=== PATIENT | female | born 1980 | race Caucasian/White ===

== ENCOUNTER 2022-11-11 06:56 | Emergency (ER) | payer OTHER, MEDICAID, SELFPAY ==
--- NOTE | ~2022-11-11 | XR_ITS ---
EXAMINATION: XR CHEST CLINICAL INFORMATION: Shortness of breath COMPARISON: None TECHNIQUE: Frontal view of the chest was obtained. FINDINGS: No significant abnormality is noted involving the heart, lungs, mediastinum, bony thorax or soft tissues. XR/XR chest 1V IMPRESSION: Unremarkable examination.
--- NOTE | 2022-11-11 06:59 | ECG_ITS ---
Test Reason : CP Blood Pressure : / mmHG Vent. Rate : 063 BPM Atrial Rate : 063 BPM P-R Int : 142 ms QRS Dur : 078 ms QT Int : 382 ms P-R-T Axes : 063 040 027 degrees QTc Int : 390 ms Normal sinus rhythm Normal ECG No previous ECGs available Referred By: Generic ED Physician Electronically Signed By:LAKSHMI APARICIO
[2022-11-11 07:11] VITALS: BP 138/95; PULSE 68; RESP 16; TEMP 36.6; O2SAT 98; BMI 28.0
[2022-11-11 07:19] VITALS: BP 132/84; PULSE 66; RESP 14; TEMP 36.9; O2SAT 100
[2022-11-11 07:53] LABS: MANUAL DIFF FLAG NO
[2022-11-11 07:55] LABS: Basophils Percent Auto 0.6 % (0-2); Eosinophils Absolute Auto 0.2 X10*3/uL (0.0-0.4); Eosinophils Percent Auto 2.1 % (0-4); Hematocrit 38.1 % (37.0-47.0); Hemoglobin 12.8 g/dl (12.0-16.0); Imm Gran Abs Auto 0.02 X10*3/uL (0.00-0.03); Imm Gran Pct Auto 0.3 % (0.0-0.4); Lymphocytes Absolute Auto 2.6 X10*3/uL (1.2-4.9); Lymphocytes Percent Auto 36.4 % (20-40); Mean Corpuscular HGB Conc 33.6 g/dl (31.0-35.0); Mean Corpuscular Hemoglobin 29.6 pg (27.0-33.0); Monocytes Absolute Auto 0.5 X10*3/uL (0.1-1.2); Monocytes Percent Auto 6.5 % (2-11); Neutrophils Absolute Auto 3.8 x10*3/uL (2.0-8.3); Neutrophils Percent Auto 54.1 % (45-73); Platelet Count 280 X10*3/uL (160-400); Red Blood Count 4.33 X10*6/uL (4.20-5.50); Red Cell Distribution Width 14.5 % (11.0-16.0)
[2022-11-11 08:15] LABS: Alanine Aminotransferase 11 U/L (0-31); Albumin Level 3.9 g/dL (3.5-5.0); Alkaline Phosphatase 53 U/L (39-117); Anion Gap 10 (12-20); Aspartate Amino Transferase 17 U/L (5-31); Bilirubin Total 0.9 mg/dL (0.0-1.0); Blood Urea Nitrogen 8 mg/dL (9-16); Carbon Dioxide 27 mmol/L (22-29); Chloride 108 mmol/L (96-108); Creatinine Clr Calc Pharmacy 90.3; Estimated Glomerular Filt Rate > 60; Glucose Random 90 mg/dL (60-115); Potassium 4.2 mmol/L (3.3-5.1); Sodium 141 mmol/L (135-145); Total Protein 6.7 g/dL (6.5-8.0)
[2022-11-11 08:18] LABS: Troponin-I High Sensitivity < 3.5 ng/L (<3.5-17.0)
--- NOTE | 2022-11-11 08:18 | ED.CHESTPAIN ---
HPI - Chest Pain General Chief Complaint: Chest Pain Stated Complaint: Chest pain Time Seen by Provider: 11/11/22 07:13 History of Present Illness HPI narrative: Patient is a 42-year-old female presents today with having chest pain. The chest pain started on Tuesday it lasted for about 15 minutes then. On Tuesday patient had leg pain. That lasted for approximately 30 minutes. There is no leg swelling. No history of being on control. No history of long distance travel. No history of cancer. Subsequently patient on Tuesday started developing chest pain tightness that lasted since approximately 15:00 it has been fairly constant since. Patient denies any diaphoresis. Question shortness of breath. Patient from home. No history of diabetes, hypertension, DC. Positive history of smoking. No history of high cholesterol. No nausea no vomiting. Related Data Allergies Allergy/AdvReac Type Severity Reaction Status Date / Time ibuprofen [From Motrin] Allergy Swelling Verified 11/11/22 07:11 Latex, Natural Rubber Allergy Swelling Verified 11/11/22 07:10 naproxen Allergy Swelling Verified 11/11/22 07:10 [facility] Past Medical History Attestation statement: The following information was validated with the patient. Social History Social History Advance Directives: Yes Advance Directives Information Provided: Yes Advance Directives on File: No Physical Exam Vital Signs: Vital Signs: Last Vital Signs Temp 98.5 F 11/11/22 07:19 Pulse 66 11/11/22 07:19 Resp 14 11/11/22 07:19 BP 132/84 11/11/22 07:19 Pulse Ox 100 11/11/22 07:19 O2 Del Method 11/11/22 07:19 BMI result Body Mass Index 28.0 Appearance: Alert. Oriented X3. No acute distress. Eyes: Pupils equal, round and reactive to light. ENT: Pharynx normal. Neck: Normal inspection. Neck supple. No lymph nodes noted. No crepitus CVS: Normal heart rate and rhythm. Pulses normal. Normal S1 and S2 Respiratory: No respiratory distress. Breath sounds normal. No Wheezing. No rales Abdomen: Soft and nontender. No rigidity. No distention. good BS x4 Skin: Skin warm and dry. Normal skin color. Normal skin turgor. Extremities: No lower extremity edema. Neurovascular intact to all extremities. No Lacerations. No Rash. Examination of the lower extremity showed no edema noted. No calf tenderness. Negative Homans sign. Calf size were equal at 10 cm below the tibial tuberosity bilaterally. Neuro: Oriented X 3. No motor deficit. No sensory deficit. Moving all extermities. No slurred speech Medical Decision Making Medical Decision Making [facility] Narrative: Patient has nonspecific chest pain and leg pain. She is 42 years old. Her only cardiac risk factor being she smokes. Patient is chest pain has been fairly constant. Two sets of cardiac enzymes are grossly negative. Patient has an atypical history. Only 1 cardiac risk factor. She is 42 years old. Negative troponin. Her heart score is less than 3. Joint decision was made to discharge patient home. Patient's chest x-ray showed no evidence of pneumonia no evidence for pneumothorax. Patient had nonspecific leg pain without any leg swelling. Patient D-dimer was grossly negative. There is no evidence for PE in the setting of low risk. She is in stable condition. Will discharge patient home. Differential Diagnosis Pneumonia, ACS, PE, DVT, pneumothorax, Admission/Observation Consideration of admission/observation: Escalation of care including admission/observation considered Lab Data [facility] Lab Attestation statement: I reviewed the patient's lab results. 11/11/22 07:47 11/11/22 03:06 Labs: Lab Results 11/11/22 11/11/22 11/11/22 Range/Units 03:06 07:42 07:47 WBC 7.0 (4.8-10.8) X10*3/uL RBC 4.33 (4.20-5.50) X10*6/uL Hgb 12.8 (12.0-16.0) g/dl Hct 38.1 (37.0-47.0) % MCV 88.0 (80.0-98.0) fL MCH 29.6 (27.0-33.0) pg MCHC 33.6 (31.0-35.0) g/dl RDW 14.5 (11.0-16.0) % Plt Count 280 (160-400) X10*3/uL MPV 10.0 (9.4-12.3) fL Immature Gran % (Auto) 0.3 (0.0-0.4) % Neut % (Auto) 54.1 (45-73) % Lymph % (Auto) 36.4 (20-40) % [place] % (Auto) 6.5 (2-11) % Eos % (Auto) 2.1 (0-4) % Baso % (Auto) 0.6 (0-2) % Lymph # (Auto) 2.6 (1.2-4.9) X10*3/uL [place] # (Auto) 0.5 (0.1-1.2) X10*3/uL Eos # (Auto) 0.2 (0.0-0.4) X10*3/uL Baso # (Auto) 0.0 (0.0-0.2) X10*3/uL Abs Immat Gran (auto) 0.02 (0.00-0.03) X10*3/uL Absolute Neuts (auto) 3.8 (2.0-8.3) x10*3/uL Absolute Nucleated RBC 0.000 (0.0-0.012) X10*3/uL Nucleated RBC % (auto) 0.0 (0.0-0.2) /100WBC D-Dimer High Sensitivty NG/ML Sodium 141 (135-145) mmol/L Potassium 4.2 (3.3-5.1) mmol/L Chloride 108 (96-108) mmol/L Carbon Dioxide 27 (22-29) mmol/L Anion Gap 10 L (12-20) BUN 8 L (9-16) mg/dL Creatinine 0.96 (0.5-1.4) mg/dL Estim Creat Clear Calc 90.3 Estimated GFR > 60 Random Glucose 90 (60-115) mg/dL Calcium 9.0 (8.4-10.2) mg/dL Total Bilirubin 0.9 (0.0-1.0) mg/dL AST 17 (5-31) U/L ALT 11 (0-31) U/L Alkaline Phosphatase 53 (39-117) U/L Troponin I High Sens (<3.5-17.0) ng/L Total Protein 6.7 (6.5-8.0) g/dL Albumin 3.9 (3.5-5.0) g/dL Lipase 13 (8-78) U/L Beta HCG, Quant < 2 mIU/mL Influenza Type A (PCR) NEGATIVE (Negative) Influenza Type B (PCR) NEGATIVE (Negative) RSV RNA Qual (PCR) NEGATIVE (Negative) SARS-CoV-2 RNA (RT-PCR) NEGATIVE (Negative) 11/11/22 11/11/22 11/11/22 Range/Units 07:47 08:33 10:15 WBC (4.8-10.8) X10*3/uL RBC (4.20-5.50) X10*6/uL Hgb (12.0-16.0) g/dl Hct (37.0-47.0) % MCV (80.0-98.0) fL MCH (27.0-33.0) pg MCHC (31.0-35.0) g/dl RDW (11.0-16.0) % Plt Count (160-400) X10*3/uL MPV (9.4-12.3) fL Immature Gran % (Auto) (0.0-0.4) % Neut % (Auto) (45-73) % Lymph % (Auto) (20-40) % [place] % (Auto) (2-11) % Eos % (Auto) (0-4) % Baso % (Auto) (0-2) % Lymph # (Auto) (1.2-4.9) X10*3/uL [place] # (Auto) (0.1-1.2) X10*3/uL Eos # (Auto) (0.0-0.4) X10*3/uL Baso # (Auto) (0.0-0.2) X10*3/uL Abs Immat Gran (auto) (0.00-0.03) X10*3/uL Absolute Neuts (auto) (2.0-8.3) x10*3/uL Absolute Nucleated RBC (0.0-0.012) X10*3/uL Nucleated RBC % (auto) (0.0-0.2) /100WBC D-Dimer High Sensitivty 157 NG/ML Sodium (135-145) mmol/L Potassium (3.3-5.1) mmol/L Chloride (96-108) mmol/L Carbon Dioxide (22-29) mmol/L Anion Gap (12-20) BUN (9-16) mg/dL Creatinine (0.5-1.4) mg/dL Estim Creat Clear Calc Estimated GFR Random Glucose (60-115) mg/dL Calcium (8.4-10.2) mg/dL Total Bilirubin (0.0-1.0) mg/dL AST (5-31) U/L ALT (0-31) U/L Alkaline Phosphatase (39-117) U/L Troponin I High Sens < 3.5 < 3.5 (<3.5-17.0) ng/L Total Protein (6.5-8.0) g/dL Albumin (3.5-5.0) g/dL Lipase (8-78) U/L Beta HCG, Quant mIU/mL Influenza Type A (PCR) (Negative) Influenza Type B (PCR) (Negative) RSV RNA Qual (PCR) (Negative) SARS-CoV-2 RNA (RT-PCR) (Negative) Independent Interpretation I performed an independent interpretation of an: EKG Interpretation: Sinus pattern heart rate is 60 NV QRS QTC within normal limits is no acute ST segment elevation Radiology Impression Discussion of test interpretation with radiology: I have reviewed the radiologist's reading. Radiologist Impression: Normal chest x-ray External Record Review Patient's old record reviewed Chronic Conditions Smoking Discharge Plan Discharge Clinical Impression: Chest pain Patient Disposition: Home, Self-Care Instructions: Chest Pain (DC) Additional Instructions: Please follow-up for your chest pain Referrals: Shorty Singh MD [Physician] - (Follow-up in 2-3 days) Physician,Alban J [Primary Care Provider] - (Please follow-up with your doctor on an outpatient basis. Follow up with Cardiology also advised given you have chest pain.)
[2022-11-11 08:32] LABS: Influenza A PCR NEGATIVE (Negative); Influenza B PCR NEGATIVE (Negative); Resp Syncy Virus RNA Qual PCR NEGATIVE (Negative); SARS COV2 PCR INHOUSE NEGATIVE (Negative)
[2022-11-11 08:55] LABS: D Dimer High Sensitivity 157 NG/ML
[2022-11-11 09:03] LABS: Lipase 13 U/L (8-78)
[2022-11-11 09:13] LABS: HCG Quantitative < 2 mIU/mL
[2022-11-11 10:42] LABS: Troponin-I High Sensitivity < 3.5 ng/L (<3.5-17.0)
== END 2022-11-11 11:19 | disposition home or self-care (01) ==
PROVIDERS: Emergency Provider Emergency Medicine Emergency Medical Services
DX: R07.89 Other chest pain (principal); Z20.822 Contact with and (suspected) exposure to COVID-19; Z20.828 Contact with and (suspected) exposure to other viral communicable diseases; Z79.899 Other long term (current) drug therapy
CPT/HCPCS: 0241U; 36415; 71045; 80053; 83690; 84484; 84702; 85025; 85379; 93005; 99283; 99285